=== PATIENT | female | born 1985 | race Caucasian/White ===

== ENCOUNTER 2024-07-20 22:47 | Emergency (ER) | payer MEDICAID ==
[~2024-07-20] VITALS: Ht 170.2 cm; Wt 70.0 kg
[2024-07-20] MEDS: PREDNISONE 20MG TABLET PO ONE (23:57)
[2024-07-21] MEDS: ALBUTEROL (0.083%) 2.5MG/3ML NEB HHN ONE
[2024-07-21] MEDS: IPRATROPIUM/ALBUTEROL 0.5-3(2.5)MG/3ML NEB HHN ONE
[2024-07-21 00:01] VITALS: PULSE 98; RESP 18; O2SAT 98
[2024-07-21] MEDS ORDERED: AZIT250T12 MT (01:38)
[2024-07-21] MEDS ORDERED: ALBU18HF2 IH (01:38)
[2024-07-21] MEDS ORDERED: AMOX1TAB16 MT (01:38)
[2024-07-21] MEDS ORDERED: P50 MT (01:38)
[2024-07-21] MEDS ORDERED: BENZ100C86 MT (01:40)
[2024-07-21 02:16] VITALS: BP 110/66; PULSE 98; RESP 18; TEMP 37.1; O2SAT 98
== END 2024-07-21 02:15 | disposition home or self-care (01) ==
LOC: ER 22:47
DX: J40 Bronchitis, not specified as acute or chronic (principal); J32.9 Chronic sinusitis, unspecified; Z79.899 Other long term (current) drug therapy; Z90.49 Acquired absence of other specified parts of digestive tract
CPT/HCPCS: 71045; 70450; 70486; 99284; 94640; J7512; Z7610 ×4; 94070